=== PATIENT | female | born 1970 | race Caucasian/White ===

== ENCOUNTER → 2016-08-03 | Outpatient (CLI) | payer OTHER ==
[~2016-08-03] MED LIST: ALT25 PO; CEPH500C2 PO; CETI10TA84 PO; DOCU100T7 PO; ERYT2GEL3 TOP; ERYTHROMYCIN 500 MG PO; HYDR-5688 PO; HYDR25SU20 PR; KRV28 PO; NITR1OIN TOP; PROM25TA9 PO
== END | disposition home or self-care (01) ==
LOC: C.PAPS 14:46
PROVIDERS: ATTEND Obstetrics & Gynecology
DX: Z12.4 Encounter for screening for malignant neoplasm of cervix (principal)

== ENCOUNTER → 2016-08-16 | Outpatient (CLI) | payer OTHER | END | disposition home or self-care (01) | LOC: C.PATHSPEC 16:07 | PROVIDERS: ATTEND Obstetrics & Gynecology | DX: N93.8 Other specified abnormal uterine and vaginal bleeding (principal) ==

== ENCOUNTER → 2016-08-16 | Outpatient (CLI) | payer OTHER ==
[2016-08-16 14:44] LABS: BASO % 0.7 %; BASO ABS # 0.04 K/uL (0-0.2); COMPLETE YES; EOS % 2.1 %; HEMATOCRIT 34.6 % (37-47); IG% 0.2 %; LYMPH % 37.8 %; LYMPH ABS # 2.17 K/uL (1.2-3.4); MEAN CELL VOLUME 86.5 fL (80-100); MEAN CORPUSCULAR HEMOGLOBIN 28.3 pg (25-34); MEAN CORPUSCULAR HGB CONC 32.7 g/dl (32-36); MEAN PLATELET VOLUME 9.9 fL (7.4-10.4); MONO % 8.4 %; NEUT % 50.8 %; PLATELET COUNT 447 K/uL (130-400); WHITE BLOOD COUNT 5.74 K/uL (4.8-10.8)
== END | disposition home or self-care (01) ==
LOC: C.LAB1850 13:36
PROVIDERS: ATTEND Internal Medicine
DX: D64.9 Anemia, unspecified (principal); N93.8 Other specified abnormal uterine and vaginal bleeding

== ENCOUNTER → 2016-12-03 | Outpatient (CLI) | payer OTHER ==
[~2016-12-03] MED LIST changes: +FEXO1TAB49 PO; +TAMO20TA9 PO
--- NOTE | 2016-12-06 13:13 | MAMMOGRAPHY REPORT ---
BILATERAL DIGITAL SCREENING MAMMOGRAM TOMOSYNTHESIS WITH CAD: 12/03/2016 CLINICAL HISTORY: Routine screening. Patient has no complaints. TECHNIQUE: Breast tomosynthesis in addition to standard 2D mammography was performed. Current study was also evaluated with a Computer Aided Detection (CAD) system. COMPARISON: Comparison is made to exams dated: 12/01/2015 mammogram, 11/26/2014 mammogram, 10/29/2013 mamm ogram, 10/27/2012 mammogram, 10/22/2011 mammogram, and 10/20/2010 mammogram - [facility] BREAST COMPOSITION: The tissue of both breasts is heterogeneously dense, which may obscure small mas ses. FINDINGS: There is a small cluster of calcifications in the right upper outer quadrant, which is not clearly stable compared to prior exams. Recommend spot magnification views for further evaluation. The remainder of both breasts are stable compared to prior exams, without suspicious masses, calcific ations, or areas of architectural distortion noted. Other scattered benign-appearing calcifications in the right upper outer quadrant do not appear significantly changed. A biopsy marker clip is again noted in the left lateral breast. IMPRESSION: ACR BI-RADS CATEGORY 0: INCOMPLETE EVALUATION: NEED ADDITIONAL IMAGING EVALUATION Right upper outer quadrant calcifications, for which additional imaging evaluation is recommended. T he patient will be called to schedule an appointment. Approximately 10% of breast cancers are not detected with mammography. A negative mammographic report should not delay biopsy if a clinically suggestive mass is present. Jess Gallego M.D. /:12/04/2016 10:10:39 Supervisor Pre Wave: Tammi Moscoso RT(R)(M), [facility] letter sent: Addl Imaging 0 BI-RADS Code: ACR BI-RADS Category 0: Incomplete Evaluation: Need Additional Imaging Evaluation
== END | disposition home or self-care (01) ==
LOC: C.MAMM 07:20
PROVIDERS: ATTEND Obstetrics & Gynecology
DX: Z12.31 Encounter for screening mammogram for malignant neoplasm of breast (principal); R92.1 Mammographic calcification found on diagnostic imaging of breast

== ENCOUNTER → 2016-12-15 | Outpatient (CLI) | payer OTHER ==
[~2016-12-15] MED LIST changes: -FEXO1TAB49 PO; -TAMO20TA9 PO
--- NOTE | 2016-12-15 14:49 | MAMMOGRAPHY REPORT ---
UNILATERAL RIGHT DIGITAL DIAGNOSTIC MAMMOGRAM: 12/15/2016 CLINICAL HISTORY: Callback from screening mammogram for right breast calcifications. TECHNIQUE: Spot magnification right cc and ML views were obtained. COMPARISON: Comparison is made to exams dated: 12/03/2016 mammogram, 12/01/2015 mammogram, 11/26/2014 mamm ogram, 10/29/2013 mammogram, 10/27/2012 mammogram, and 10/22/2011 mammogram - [facility] . BREAST COMPOSITION: The tissue of the right breast is heterogeneously dense, which may obscure small masses. FINDINGS: There is a small 3 mm cluster of slightly coarse, heterogeneous calcifications in the righ t upper outer quadrant posteriorly. Compared to prior exams, the calcifications are slightly increas ed. However, the calcifications appear similar to other scattered calcifications throughout the righ t upper outer quadrant which are stable compared to prior exams; some of the other scattered calcific ations demonstrate layering, suggestive of milk of calcium. The discussion of stereotactic biopsy ve rsus short interval follow-up was had with the patient, and at this time we will proceed to biopsy gi solo the interval increase. IMPRESSION: ACR BI-RADS CATEGORY 4A: LOW SUSPICION FOR MALIGNANCY Interval increase in small cluster of calcifications in the right upper outer quadrant. Although the se may represent fibrocystic changes, recommend stereotactic biopsy for further evaluation. A phone call was made to the physician's office to confirm faxed results were received. The patient has been verbally notified of the results. She tentatively scheduled the biopsy before leaving [facility]. Approximately 10% of breast cancers are not detected with mammography. A negative mammographic report should not delay biopsy if a clinically suggestive mass is present. Jess Gallego M.D. /:12/15/2016 09:10:53 Childcare Worker: Calvin ÁLVAREZ(R)(M), [facility] letter sent: Abnormal 4/5 BI-RADS Code: ACR BI-RADS Category 4A: Low Suspicion For Malignancy
== END | disposition home or self-care (01) ==
LOC: C.MAMM 08:39
PROVIDERS: ATTEND Obstetrics & Gynecology
DX: R92.1 Mammographic calcification found on diagnostic imaging of breast (principal)

== ENCOUNTER → 2016-12-21 | Outpatient (CLI) | payer OTHER ==
[~2016-12-21] MED LIST changes: +FEXO1TAB49 PO; +TAMO20TA9 PO
--- NOTE | 2016-12-21 13:21 | Discharge Instructions ---
Discharge Instructions Procedure Procedure Date: Dec 21, 2016. Reason for visit: Right Calcifications. Discharge Discharge Date: Dec 21, 2016. Discharge Diagnosis: post right breast stereotactic guided biopsy Instructions Activity Recommendations: Additional Limitations (see below) Return to School/Work: no limitations Recommended Home Diet: No Limitations Provider Instructions: ACTIVITY RECOMMENDATIONS: * No lifting, pushing, pulling or exercising the affected side for three days. RETURN TO SCHOOL/WORK: * You may return to work/school after the procedure, but do not perform any strenuous activities for 24 to 48 hours. MEDICATIONS: * Tylenol (two 325 mg) every four to six hours if needed for mild pain (if not allergic to Tylenol). DIET: * Resume previous diet. SPECIAL CARE INSTRUCTIONS: * Keep biopsy site dry for 24 hours. May shower after 24 hours, but do not soak (bathe) incision. * May remove Tegaderm (plastic patch) tomorrow AFTER showering. * Leave the steri-strips on for one week. Allow the steri-strips to fall off by themselves. If not off after one week, you may remove them. You may place a Bandaid crosswise over the strips, if desired. * Apply ice 10 minutes on and 10 minutes off as needed. * Wear a bra at bedtime to sleep more comfortably for 2-3 days. * Your referring physician should have the results after approximately 5 to 7 business days. * Call for unusual bleeding, fever, drainage, etc or if you have any questions call [phone] during normal business hours or after hours call Dr Hernandez, . FOLLOW UP VISIT: Follow-up with Referring Physician as scheduled. Allergies Coded Allergies: SHELLFISH (Verified Allergy, Severe, swelling and hives, 06/14/13) Hydromorphone (Verified Allergy, Intermediate, ITCHING, 06/14/13) Tetracycline (Verified Adverse Reaction, Intermediate, N/V, 06/14/13) Uncoded Allergies: BEE STINGS (Allergy, Intermediate, ANAPHYLAXIS, 04/14/13) Jessy Chinchilla Recommendations: Call your doctor if: * Temperature above 101 degrees * Pain not relieved by pain medicine ordered * There is increased drainage or redness from any incision * You have any unanswered questions or concerns. Your Doctors Instructions noted above were prepared by provider Sharri Hernandez. Patient Signature Section: Patient Instructions Signature Page Gena Mahoneyntz Patient (or Guardian) Signature/Date: I have read and understand the instructions given to me by my caregivers. Caregiver/RN/Doctor Signature/Date: The above-named patient and/or guardian has received patient instructions on this date. + Original Patient Signature Page (only) stays with chart. Please make copy for patient.
--- NOTE | 2016-12-21 15:37 | MAMMOGRAPHY REPORT ---
THIS REPORT HAS BEEN AMENDED. STEREOTACTIC GUIDED BIOPSY RIGHT BREAST: 12/21/2016 CLINICAL HISTORY: Indeterminate 3 mm cluster of microcalcifications in the upper outer quadrant of th e right breast. Patient presents for stereotactic biopsy. COMPARISON: Comparison is made to exams dated: 12/15/2016 mammogram, 12/03/2016 mammogram, 12/01/2015 cain mogram, 11/26/2014 mammogram, 10/29/2013 mammogram, and 10/27/2012 mammogram - [facility] . PATIENT CONSENT: After explaining the risks, benefits and alternatives of the procedure to the patien t, informed consent was obtained both verbally and in writing. Specific risks include: Bleeding, inf ection, puncture of adjacent structure, pain, nontarget biopsy, sampling error, metal allergy and med ication reaction. PROCEDURE DESCRIPTION: A time-out was performed and the right breast was confirmed as the site of bio psy. The patient was placed prone on the stereotactic biopsy table and the breast was placed in later almedial compression. A petroleum production engineer image was obtained that demonstrated the clustered microcalcifications in question. They are amenable to sterotactic biopsy. Then +15 and -15 stereo pair images were ob tained. The calcifications were targeted utilizing the coordinates obtained by the computer. The ski n was prepped with Betadine. 1% Lidocaine with and without epinipherine was administered as local ane sthesia. A small skin incision was made. Through the incision, the needle was inserted to the depth determined by the computer. 5 samples were obtained using a Spike[employer] 9-gauge vacuum-assisted biops y device. The specimen radiograph demonstrated several hostess party sales representative microcalcifications, therefore, a metallic marker was placed at the biopsy site. There was no immediate complication. Hemostasis was achieved after several minutes of manual compression. The samples were sent to pathology in two lon ropriately labeled containers, "with calcifications" and "without calcifications". All of the samples were obtained from the same single biopsy site. Postprocedure CC and ML views of the right breast were obtained. There is a new dumbbell shaped met allic biopsy marker and no significant hematoma in the upper outer middle to posterior right breast, at the site of the biopsy clustered microcalcifications. IMPRESSION: STEREOTACTIC GUIDED BIOPSY Status post stereotactic guided biopsy of a small 3 mm cluster of microcalcifications in the upper ou ter quadrant of the right breast, the biopsy marker placed at the site. The patient will receive notification of the biopsy results from her referring physician. Sharri Hernandez M.D. ay/:12/21/2016 13:48:57 Drug Safety Coordinator: Minerva Tavarez, [facility] AMENDMENT: 12/29/2016 Sharri Hernandez M.D. Pathology results from the stereotactic guided biopsy of a small clustered microcalcifications in the upper outer quadrant of the right breast yielded ductal carcinoma in situ, cribriform and solid with , no necrosis, nuclear grade 2 of 3. No invasive carcinoma seen. The pathology results are concorda nt with the imaging appearance. Although other punctate diffuse microcalcifications in both breasts appears stable compared to more remote mammograms suggesting benign fibrocystic changes, and the poss ibility of noncalcified DCIS, consider bilateral breast MRI, prior to definitive treatment.
--- NOTE | 2016-12-21 15:39 | MAMMOGRAPHY REPORT ---
UNILATERAL RIGHT DIGITAL DIAGNOSTIC MAMMOGRAM: 12/21/2016 CLINICAL HISTORY: Status post stereotactic guided biopsy of clustered microcalcifications in the righ t upper outer quadrant. Please refer to the report from right breast stereotactic guided biopsy performed at the same time fo r full detail. IMPRESSION: POST PROCEDURE IMAGING FOR MARKER PLACEMENT Please refer to the report from right breast stereotactic guided biopsy performed at the same time fo r full detail. Approximately 10% of breast cancers are not detected with mammography. A negative mammographic report should not delay biopsy if a clinically suggestive mass is present. Sharri Hernandez M.D. ay/:12/21/2016 13:50:25 Coiler Operator: Minerva Tavarez, [facility] BI-RADS Code: Post Procedure Imaging For Marker Placement
== END | disposition home or self-care (01) ==
LOC: C.MAMM 12:35
PROVIDERS: ATTEND Obstetrics & Gynecology
DX: R92.1 Mammographic calcification found on diagnostic imaging of breast (principal); D05.11 Intraductal carcinoma in situ of right breast

== ENCOUNTER 2017-01-12 07:56 | Observation (INO) | payer OTHER ==
[2017-01-05 07:59] VITALS: BMI 24.0
--- NOTE | 2017-01-05 08:42 | PAT Medication Instructions ---
Service Date Jan 05, 2017. Current Home Medication List Cetirizine (Zyrtec), 10 MG PO QAM PRN for SKIN IRRITATION Docusate Sodium (Stool Softener), 200 MG PO DAILY PRN for Constipation Erythromycin (Acne Aid) (Erythromycin), 1 APPLN TOP PRN PRN for ACNE Ramipril (Altace), 5 MG PO QAM [Erythromycin 500MG], 1 TABLET PO DAILY PRN for ACNE Medication Instructions For Your Scheduled Surgery - Hold the following medications 24 hours prior to surgery: Erythromycin (Acne Aid) (Erythromycin), 1 APPLN TOP PRN PRN for ACNE - Hold the following medications the morning of surgery: Ramipril (Altace), 5 MG PO QAM Docusate Sodium (Stool Softener), 200 MG PO DAILY PRN for Constipation Cetirizine (Zyrtec), 10 MG PO QAM PRN for SKIN IRRITATION [Erythromycin 500MG], 1 TABLET PO DAILY PRN for ACNE If you have any questions please call us at [phone] or [phone] or [phone]
[2017-01-05 09:54] LABS: BASO % 0.6 %; BASO ABS # 0.03 K/uL (0-0.2); COMPLETE YES; EOS % 2.1 %; HEMATOCRIT 33.8 % (37-47); LYMPH % 34.9 %; LYMPH ABS # 1.66 K/uL (1.2-3.4); MEAN CELL VOLUME 90.6 fL (80-100); MEAN CORPUSCULAR HEMOGLOBIN 28.4 pg (25-34); MEAN CORPUSCULAR HGB CONC 31.4 g/dl (32-36); MEAN PLATELET VOLUME 9.9 fL (7.4-10.4); MONO % 8.2 %; NEUT % 54.2 %; PLATELET COUNT 399 K/uL (130-400); RED BLOOD COUNT 3.73 M/uL (4.2-5.4); WHITE BLOOD COUNT 4.76 K/uL (4.8-10.8)
[2017-01-05 11:06] LABS: BUN/CREATININE RATIO 18.7 (10-20); CREATININE 0.75 mg/dl (0.60-1.20); POTASSIUM 4.3 mmol/L (3.5-5.1)
[2017-01-12] VITALS (8 sets, daily range): BP systolic 109–132; BP diastolic 67–80; PULSE 59–87; TEMP 36.5–37; O2SAT 97–100; Ht 172.7 cm; Wt 73.2 kg
[~2017-01-12] VITALS: Ht 172.7 cm; Wt 73.2 kg
[~2017-01-12 07:56] MED LIST changes: +CEFAZOLIN 2000 MG/60 ML D5W IV SCH; -CEPH500C2 PO; -FEXO1TAB49 PO; -HYDR-5688 PO; -HYDR25SU20 PR; -KRV28 PO; -NITR1OIN TOP; -PROM25TA9 PO; -TAMO20TA9 PO
--- NOTE | 2017-01-12 09:05 | History & Physical Bridge Note ---
H&P Re-Evaluation Bridge Note: I have examined the patient, reviewed the History & Physical and in the interval since the performance of the History & Physical I have noted the following changes of clinical significance: No changes noted
--- NOTE | 2017-01-12 10:16 | DIAGNOSTIC IMAGING REPORT ---
LYMPHOSCINTIGRAPHY CLINICAL HISTORY: Right-sided breast cancer. PROCEDURE: Using standard sterile technique, 5 intradermal injections totaling 0.52 mCi of Lymphoseek was placed in the right breast. The patient tolerated the procedure well. There were no immediate complications. The patient was subsequently transported to the surgical suite. No imaging was obtained at the referring physician's request. IMPRESSION: Injection of 0.52 mCi of Lymphoseek in the right breast. Electronically signed by: Edy Diaz M.D. 01/12/2017 10:15 AM Dictated Date/Time: 01/12/2017 10:11 AM
[2017-01-12] MEDS ORDERED: FENTANYL CITRATE INJ 50 MCG/1 ML 2 ML VIAL ONE ×3 (10:19→12:59)
[2017-01-12] MEDS ORDERED: MIDAZOLAM HCL 1 MG/ML 2ML VIAL ONE (10:19)
[2017-01-12] MEDS ORDERED: HYDR-5688 PO (11:09)
--- NOTE | 2017-01-12 11:14 | Discharge Instructions ---
Discharge Instructions Date of Service Jan 12, 2017. Admission Reason for Admission: Rt Dcis W/Lympho/Hosp Loc Discharge Discharge Diagnosis / Problem: DCIS Rt breast Discharge Goals Goal(s): Decrease discomfort, Improve function, Improve disease control Activity Recommendations Activity Limitations: as noted below Lifting Limitations: no more than 10 pounds Exercise/Sports Limitations: until after follow-up appointment May Resume Sexual Activity: when tolerated Shower/Bathe: keep incision dry (may shower over incision 01/14) Driving or Machine Use: resume 3 days after discharge SPECIAL CARE INSTRUCTIONS: * Cover incisions and change daily for comfort/drainage. * Leave steri strips in place * May use ibuprofen for pain as tolerated. * be sure to drink liquids and avoid food if nauseated * Expect some swelling and bruising. Call your doctor if: * Temperature above 101 degrees * Pain not relieved by pain medicine ordered * There is increased drainage or redness from any incision * You have any unanswered questions or concerns [phone]. FOLLOW UP VISIT: If not already scheduled, please call the office for a follow-up visit. for next week- some suture removal OFFICE PHONE NUMBER: Dr. Andrade Office . Current Hospital Diet Patient's current hospital diet: Discharge Diet Recommended Diet: Regular Diet Pending Studies Studies pending at discharge: no Medical Emergencies . Who to Call and When: Medical Emergencies: If at any time you feel your situation is an emergency, please call 911 immediately. . Non-Emergent Contact Non-Emergency issues call your: Primary Care Provider, Surgeon . "Provider Documentation" section prepared by Ashok Andrade. . VTE Core Measure Inpt VTE Proph given/why not?: SCD's
[2017-01-12] MEDS ORDERED: BUPIVACAINE 0.5 % 5 MG/1 ML MPF 30ML VIAL ONE (11:18)
[2017-01-12] MEDS ORDERED: METHYLENE BLUE 0.5% 10 ML VIAL ONE (11:18)
[2017-01-12] MEDS ORDERED: PROPOFOL IV EMULSION 10 MG/ML 20 ML VIAL IV ONE (11:50)
[2017-01-12] MEDS ORDERED: LIDOCAINE HCL 2% 2 ML VIAL (20MG/ML) ONE (11:50)
[2017-01-12] MEDS ORDERED: DEXAMETHASONE SOD INJ 4 MG/ML VIAL ONE (11:50)
[2017-01-12] MEDS ORDERED: EpHEDrine SULFATE INJ 50 MG/ML AMP ONE (11:50)
[2017-01-12] MEDS ORDERED: ONDANSETRON INJ 2 MG/ML 2 ML VIAL ONE (11:50)
[2017-01-12] MEDS ORDERED: ONDANSETRON INJ 2 MG/ML 2 ML VIAL IV PRN ×2 (12:00→12:45)
[2017-01-12] MEDS ORDERED: PROMETHAZINE HCL INJ 6.25 MG in SODIUM CHLORIDE 0.9% 50ML 50 ML IV PRN (12:00)
[2017-01-12] MEDS ORDERED: ATROPINE SULFATE 0.1 MG/ML 5ML SYR IV PRN (12:00)
[2017-01-12] MEDS ORDERED: FENTANYL CITRATE INJ 50 MCG/1 ML 2 ML VIAL IV PRN (12:00)
[2017-01-12] MEDS ORDERED: KETOROLAC TROMETHAMINE 30 MG/ML VIAL IV. PRN (12:00)
[2017-01-12] MEDS ORDERED: PROMETHAZINE HCL INJ 25 MG in SODIUM CHLORIDE 0.9% 50ML 50 ML IV PRN (12:45)
[2017-01-12] MEDS ORDERED: IBUPROFEN 600 MG TAB PO PRN (12:45)
[2017-01-12] MEDS ORDERED: MoRPHine SULFATE 2 MG/ML CARP IV PRN (12:45)
[2017-01-12] MEDS ORDERED: MoRPHine SULFATE 4 MG/ML 1 ML CARP\\VIAL IV PRN (12:45)
[2017-01-12] MEDS ORDERED: HYDROCODONE/ACETAMOPHEN 5/325MG TAB PO PRN (12:45)
--- NOTE | 2017-01-12 12:53 | [facility] Operative Report ---
Operative Report Operative Date Jan 12, 2017. Pre-Operative Diagnosis DCIS Rt breast Post-Operative Diagnosis same Procedure(s) Performed needle loc Rt partial mastectomy with sentinel lymph node bx Surgeon Raymond Curriculum Development Manager Surgeon(s) Florecita Summers Estimated Blood Loss 20cc Findings 1 SLN and clip in Rt breast tissue Specimens LN, breast tissue Anesthesia gen Complication(s) None Disposition Recovery Room / PACU Description of Procedure Patient was brought in the operating room placed napping table in supine position and her right arm was extended onto an arm board. She had needle placed in the lateral right breast at the breast pear[place]. Her right breast and axilla were prepped and draped in the usual fashion. Using the neoprobe I was able to localize a right axillary lymph node after appropriate incision in the right axilla. This lymph node was sent for frozen section and found to be negative. During the frozen section incision was made around the needle in the right breast. Section was carried medially around the needle sizing the tissue. Tissue was marked with the needle lateral long silk suture medial and short silk suture superior. This tissue was placed into the Faxitron the image sent to the breast center. Calcifications were within the specimen. The clip was anterior to the needle and I did take additional anterior medial and deep tissue with a silk suture lateral and the more dense tissue medial. The new margin was marked with methylene blue. Deep tissue in both wounds were reapproximated using 20 plain catgut suture. The skin in the axilla closed using 4-0 Prolene suture. The breast skin closed using subcuticular 5-0 Monocryl with Steri-Strips. Dressings applied and patient transferred to recovery room in stable condition. I attest to the content of the Intraoperative Record and any orders documented therein. Any exceptions are noted below.
[2017-01-12] MEDS ORDERED: KETOROLAC TROMETHAMINE 30 MG/ML VIAL ONE (12:59)
[2017-01-12] MEDS ORDERED: IV FLUIDS COMPLETED PRN (13:45)
--- NOTE | 2017-01-12 13:51 | MAMMOGRAPHY REPORT ---
NEEDLE LOCALIZATION RIGHT BREAST: 01/12/2017 CLINICAL HISTORY: 46-year-old woman with recent biopsy-proven right breast DCIS. She presents for pr eoperative localization prior to lumpectomy. COMPARISON: Comparison is made to exams dated: 12/21/2016 mammogram, 12/21/2016 stereotactic biopsy, mammogram, 12/01/2015 mammogram, 11/26/2014 mammogram, and 10/29/2013 mammogram - [facility]. PATIENT CONSENT: The risks of the procedure were explained to the patient and informed consent was ob tained. PROCEDURE DESCRIPTION: Postprocedure mammograms obtained after the stereotactic guided biopsy on 11/26 were reviewed. The dumbbell shaped metallic biopsy marker in the upper outer middle one third of the breast is the intended target for preoperative localization. A time out was performed and th e right breast was agreed as the site for localization. With the patient in the seated position, the right breast was placed in lateralmedial compression. After cleansing the skin with an alcohol swab, 1% buffered lidocaine was administered subcutaneously and intraparenchymally as local anesthesia. A 5cm Santillan II needle and wire combination was insert ed into the breast. Optimal positioning was confirmed and both the needle and wire were locked in evonne ce. Procedure including approach and needle length were discussed with the operating surgeon prior t o surgery. The patient tolerated the procedure well and there was no immediate complication. She wa s sent to the hospital operating room in satisfactory condition. A surgical specimen radiograph was obtained. The specimen contains the dumbbell-shaped metallic biop sy marker and the localizing needle and wire, compatible with successful preoperative localization an d surgical excision. The biopsy marker clip is located at C6 based on the alphanumeric grid. IMPRESSION: NEEDLE LOCALIZATION Status post successful preoperative needle and wire localization for biopsy proven DCIS in the right upper outer quadrant. The imaged specimens includes the intended abnormality. The patient will receive notification of the results from her referring physician. Sharri Hernandez M.D. ay/:01/12/2017 12:59:21 Rn Maternal Child: Marjan WHALEY)(Jeffry), [facility]
--- NOTE | 2017-01-12 14:33 | Anesthesiology Progress Note ---
Anesthesia Post Op Note Date & Time Jan 12, 2017 at 14:33 Vital Signs Pain Intensity: 0.0 Vital Signs Past 12 Hours Date Time Temp Pulse Resp B/P (MAP) Pulse Ox O2 Delivery O2 Flow Rate FiO2 01/12/17 14:20 99 Nasal Cannula 2.0 01/12/17 14:10 36.9 81 18 132/76 (94) 99 2.0 01/12/17 13:45 85 16 120/72 99 Nasal Cannula 2 01/12/17 13:35 36.9 85 16 120/82 99 Nasal Cannula 2 01/12/17 13:25 85 16 124/83 99 Nasal Cannula 2 01/12/17 13:15 85 16 122/81 100 Mask 5 01/12/17 13:05 84 12 134/90 100 Mask 8 01/12/17 12:55 90 17 135/80 100 Mask 10 01/12/17 12:46 36.5 96 16 131/81 100 Mask 10 01/12/17 08:45 37 59 18 130/67 (88) 100 Room Air Notes Mental Status: alert / awake / arousable, participated in evaluation Pt Amnestic to Procedure: Yes Nausea / Vomiting: adequately controlled Pain: adequately controlled Airway Patency, RR, SpO2: stable & adequate BP & HR: stable & adequate Hydration State: stable & adequate Anesthetic Complications: no major complications apparent
[2017-01-12] MEDS ORDERED: LACTATED RINGER'S 1000ML 1,000 ML IV SCH (15:00)
[2017-01-12] MEDS ORDERED: CEPH500C2 PO (16:23)
--- NOTE | 2017-01-12 16:28 | Discharge Summary ---
Discharge Summary Date of Service Jan 12, 2017. Discharge Summary Admission Date: Jan 12, 2017 at 12:47 Primary Diagnosis: DCIS Rt breast Procedures: Rt partial mastectomy with sentinel lymph node bx Discharge Instructions Last Recorded Wt (Kilograms): 73.200 Allergies: Coded Allergies: Shellfish (Verified Allergy, Severe, swelling and hives, 01/12/17) BEE STING (Unverified Allergy, Intermediate, ANAPHYLAXIS, 01/12/17) Hydromorphone (Verified Allergy, Intermediate, ITCHING, "GROGGINESS", 01/12) Tetracycline (Verified Adverse Reaction, Intermediate, N/V, 01/12/17) Special Care: Call your doctor if: * Temperature above 101 degrees * Pain not relieved by pain medicine ordered * There is increased drainage or redness from any incision * You have any unanswered questions or concerns. Avoid all tobacco products. If you need help to stop smoking, call [employer] FREE QUITLINE at . This is a free call. Admission Information Admission HPI: h/o of prior core bx showing DCIS Rt breast for definitive surgery Hospital Course Patient was brought in the hospital on 01/12/2017. She was taken the operating room placed in the operative table in supine position. She had had a needle placed in the right breast the breast center and had also undergone injection in radiology for sentinel lymph node biopsy. Her right chest and axilla were prepped and draped in usual fashion. Incision was made in the right axilla using half percent plain Marcaine to anesthetize skin and subcutaneous tissue. Dissection was carried down identifying the sentinel lymph node which was sent for frozen section. The lymph node was negative on frozen section. During the frozen section lumpectomy was performed by making incision around the needle in the lateral right breast. Dissection was carried down in the tissue around the needle excised. See remainder of operative report for details. Patient did tolerate procedure very well subsequently transferred to the recovery room and then the regular nursing floor. She did have some nausea and small episode of emesis during the evening. It has improved and she is tolerating liquids. I do feel she is stable for discharge home be followed in the surgical clinic next week. We'll give her a prescription for Phenergan. Total time spent on discharge = This includes examination of the patient, discharge planning, medication reconciliation, and communication with other providers.
[2017-01-12] MEDS: CEFAZOLIN IV 1,000 MG in DEXTROSE 5% 50ML 50 ML IV SCH ×2 (18:35→23:29)
[2017-01-12] MEDS: HYDROCODONE/ACETAMOPHEN 5/325MG TAB PO PRN ×2 (18:38→23:15)
[2017-01-13 03:45] VITALS: BP 94/58; PULSE 63; TEMP 36.8; O2SAT 97
[2017-01-13] MEDS: CEFAZOLIN IV 1,000 MG in DEXTROSE 5% 50ML 50 ML IV SCH (05:32)
[2017-01-13] MEDS ORDERED: PROM25TA9 PO (05:57)
[2017-01-13] MEDS: HYDROCODONE/ACETAMOPHEN 5/325MG TAB PO PRN (06:24)
[2017-01-13 07:16] VITALS: BP 94/58; PULSE 63; TEMP 36.8; O2SAT 97
[2017-01-13 07:26] VITALS: BP 108/66; PULSE 61; TEMP 36.8; O2SAT 99
--- NOTE | 2017-01-13 07:55 | Anesthesiology Progress Note ---
Anesthesia Post Op Note Date & Time Jan 13, 2017 at 07:54 Vital Signs Pain Intensity: 3.0 Vital Signs Past 12 Hours Date Time Temp Pulse Resp B/P (MAP) Pulse Ox O2 Delivery O2 Flow Rate FiO2 01/13/17 07:26 36.8 61 16 108/66 (80) 99 Room Air 01/13/17 07:16 36.8 63 16 97 Room Air 01/13/17 03:45 36.8 63 16 94/58 (70) 97 Room Air 01/12/17 23:35 36.7 71 16 120/78 (92) 99 Room Air 01/12/17 23:23 Room Air Notes Mental Status: alert / awake / arousable, participated in evaluation Anesthetic Complications: no major complications apparent
[2017-01-13] MEDS ORDERED: ENALAPRIL MALEATE 10 MG TAB PO SCH (09:00)
== END 2017-01-13 09:30 | disposition home or self-care (01) ==
LOC: C.ACU 07:56 → C.MSN 12:47 → ENRESERV 13:03
PROVIDERS: ADMIT Surgery; ATTEND Surgery
DX: D05.11 Intraductal carcinoma in situ of right breast (principal); N60.11 Diffuse cystic mastopathy of right breast; E78.5 Hyperlipidemia, unspecified; I10 Essential (primary) hypertension

== ENCOUNTER → 2017-04-18 | Outpatient (CLI) | payer OTHER ==
[~2017-04-18] MED LIST changes: -CEFAZOLIN 2000 MG/60 ML D5W IV SCH; -DOCU100T7 PO; -ERYTHROMYCIN 500 MG PO; +FEXO1TAB49 PO; +TAMO20TA9 PO
[2017-04-18 09:41] LABS: BASO % 0.9 %; BASO ABS # 0.05 K/uL (0-0.2); COMPLETE YES; EOS % 3.5 %; IG% 0.4 %; LYMPH % 33.9 %; LYMPH ABS # 1.85 K/uL (1.2-3.4); MEAN CELL VOLUME 88.9 fL (80-100); MEAN CORPUSCULAR HEMOGLOBIN 28.6 pg (25-34); MEAN CORPUSCULAR HGB CONC 32.2 g/dl (32-36); MONO % 9.5 %; NEUT % 51.8 %; PLATELET COUNT 362 K/uL (130-400); RED BLOOD COUNT 4.61 M/uL (4.2-5.4); WHITE BLOOD COUNT 5.45 K/uL (4.8-10.8)
== END | disposition home or self-care (01) ==
LOC: C.LAB1850 08:20
PROVIDERS: ATTEND Dermatology
DX: L50.9 Urticaria, unspecified (principal)

== ENCOUNTER → 2017-04-19 | Outpatient (CLI) | payer OTHER ==
[2017-04-19 15:24] VITALS: BP 133/84; PULSE 72; TEMP 37; O2SAT 100
--- NOTE | 2017-04-19 16:04 | Radiation Oncology Follow-Up ---
Radiation Oncology Follow-Up Date of Visit Apr 19, 2017. Reason For Visit One-month follow-up in cancer survivorship care plan Radiation Completion Date 03/17/17 Diagnosis (1) Ductal carcinoma in situ (DCIS) of breast Status: Resolved Onset Date: 12/21/2016 Stage: 0 Permanent Comment: Abnormal right breast mammogram Status post ultrasound-guided core needle biopsy 12/21/2016 Ductal carcinoma in situ Estrogen receptor positive and progesterone receptor negative Status post needle localization lumpectomy and sentinel lymph node biopsy 2016 Stage pTis [id number] Status post completion of radiation therapy 03/17/2017. She received 5130 cGy utilizing hypo-fractionation. Last Edited By: Mikala Brooks on Mar 25, 2017 11:06 History of Present Illness Ms. Morris presented with an abnormal mammogram on 12/03/2016 which revealed a small cluster of calcifications in the right upper outer quadrant of the breast. She was brought back on 12/15/2016 for a unilateral right diagnostic mammogram which confirmed a small cluster of calcifications in the right breast in the upper outer quadrant. She then underwent a stereotactic core biopsy of 2 regions (one with calcifications and one without calcifications) of the right breast lesion on 12/21/2016 which confirmed ductal carcinoma in situ with comedonecrosis that his nuclear grade 2/3 and measured up to 0.3 cm in greatest dimension; the biopsy sample without calcifications also confirmed ductal carcinoma in situ that was nuclear grade 2/3 that measured up to 4 mm in the greatest dimension and was estrogen receptor positive and progesterone receptor negative. The patient saw Dr. Ashok Andrade in consultation in discuss treatment options including mastectomy and breast conserving surgery. The patient elected for a right breast lumpectomy and sentinel lymph node biopsy on 01/12/2017 underneath the supervision of Dr. Ashok Andrade. Pathology revealed ductal carcinoma in situ that was grade 3 with no evidence of necrosis and measures 0.4 cm in the greatest dimension. The margins were negative and the closest margin was 1 mm. The sentinel lymph node revealed no evidence of metastatic carcinoma. The patient was seen by Michele Rios from medical oncology who recommended anti- hormonal therapy utilizing tamoxifen. We are now seeing the patient in consultation discuss the role of adjuvant radiation therapy. She underwent a CT simulation and was found to be a candidate for hypo- fractionation. Her treatment was completed on 03/17/2017. She received 5130 cGy. Interim History She has been doing well over the past month in regards to skin irritation. This resolved without difficulty. She denies any discomfort of the breast. She 's noted no masses no change of the axilla. She was started on tamoxifen. With the medication she has noted some dermatologic issues. She did see the lace machine operator. She describes dermatographia. She has been on Zyrtec and this was just changed to Jeanna today. She does have hot flashes which are noted at bedtime. These are less of an issue throughout the day. 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 Allergies Coded Allergies: Shellfish (Verified Allergy, Severe, swelling and hives, 01/12/17) BEE STING (Unverified Allergy, Intermediate, ANAPHYLAXIS, 01/12/17) Hydromorphone (Verified Allergy, Intermediate, ITCHING, "GROGGINESS", 01/12) Tetracycline (Verified Adverse Reaction, Intermediate, N/V, 01/12/17) Home Medications Scheduled Cetirizine (Zyrtec), 10 MG PO DAILY Fexofenadine Hcl (Jeanna Allergy), 1 TAB PO DAILY Ramipril (Altace), 5 MG PO QAM Tamoxifen (Nolvadex), 20 MG PO DAILY Scheduled PRN Erythromycin (Acne Aid) (Erythromycin), 1 APPLN TOP PRN PRN for ACNE Review of Systems Oral: Symptoms: No Problems Respiratory: Symptoms: WNL Urinary: Symptoms: WNL Skin: Symptoms: Mod-Brisk Erythema Breast: Right Upper Arm Measurement: 27.5 Right Mid Arm Measurement: 23.0 Right Wrist Measurement: 16.5 Left Upper Arm Measurement: 27.5 Left Mid Arm Measurement: 24.0 Left Wrist Measurement: 16.5 Arm Dominence: Left Additional Notes: She completed a distress management report and answered "no" to all questions. Physical Exam Vital Signs Date Time Temp Pulse Resp B/P (MAP) Pulse Ox O2 Delivery O2 Flow Rate FiO2 04/19/17 15:24 37.0 72 18 133/84 100 Pain: Pain Onset: after surgery Pain Duration: since surgery01/12 Side: Right Patient Pain Scale: 0 - 10 Initial Pain Intensity: 2.0 Pain Description: Aching Additional Comments: deep inner aching pain when lifts arm above shoulder, carrying purse, General Appearance: no apparent distress Eyes: normal inspection, EOMI ENT: normal ENT inspection, hearing grossly normal Neck: no adenopathy, thyroid normal Respiratory/Chest: lungs clear, no respiratory distress, no accessory muscle use Breast: There are well-healed incisions of the right breast. Mild asymmetry. She has small pustule on the skin at the edge of the areola. There are no masses or tenderness and no axillary adenopathy. Minimal hyperpigmentation. There is no breast edema. Using the [place]win score cosmesis she has a good outcome. The left breast showed no masses or tenderness no axillary adenopathy. Cardiovascular: regular rate, rhythm, no gallop, no murmur Extremities: no pedal edema Neurologic/Psychiatric: no motor/sensory deficits, alert, normal mood/affect Skin: warm/dry Laboratory Studies Test 01/25/17 13:53 04/18/17 08:28 White Blood Count 6.13 K/uL (4.8-10.8) 5.45 K/uL (4.8-10.8) Red Blood Count 3.92 M/uL (4.2-5.4) 4.61 M/uL (4.2-5.4) Hemoglobin 11.2 g/dL (12.0-16.0) 13.2 g/dL (12.0-16.0) Hematocrit 35.1 % (37-47) 41.0 % (37-47) Mean Corpuscular Volume 89.5 fL (80-100) 88.9 fL (80-100) Mean Corpuscular Hemoglobin 28.6 pg (25-34) 28.6 pg (25-34) Mean Corpuscular Hemoglobin Concent 31.9 g/dl (32-36) 32.2 g/dl (32-36) Platelet Count 497 K/uL (130-400) 362 K/uL (130-400) Mean Platelet Volume 9.9 fL (7.4-10.4) 11.0 fL (7.4-10.4) Neutrophils (%) (Auto) 42.7 % 51.8 % Lymphocytes (%) (Auto) 41.6 % 33.9 % Monocytes (%) (Auto) 7.7 % 9.5 % Eosinophils (%) (Auto) 6.2 % 3.5 % Basophils (%) (Auto) 1.6 % 0.9 % Neutrophils # (Auto) 2.62 K/uL (1.4-6.5) 2.82 K/uL (1.4-6.5) Lymphocytes # (Auto) 2.55 K/uL (1.2-3.4) 1.85 K/uL (1.2-3.4) Monocytes # (Auto) 0.47 K/uL (0.11-0.59) 0.52 K/uL (0.11-0.59) Eosinophils # (Auto) 0.38 K/uL (0-0.5) 0.19 K/uL (0-0.5) Basophils # (Auto) 0.10 K/uL (0-0.2) 0.05 K/uL (0-0.2) RDW Standard Deviation 46.1 fL (36.4-46.3) 47.6 fL (36.4-46.3) RDW Coefficient of Variation 14.0 % (11.5-14.5) 14.5 % (11.5-14.5) Immature Granulocyte % (Auto) 0.2 % 0.4 % Immature Granulocyte # (Auto) 0.01 K/uL (0.00-0.02) 0.02 K/uL (0.00-0.02) Absolute Reticulocyte Count 0.05 10^6/uL (0.02-0.10) Percent Reticulocyte Count 1.2 % (0.5-2.0) Iron Level 68 mcg/dl (35-150) Total Iron Binding Capacity 489 mcg/dl (250-450) Ferritin 13.2 ng/ml (8.0-388.0) Qeiyl-8-Wehpsskoc 0.3 G/DL (0.2-0.3) Nxion-0-Taebwbwie 0.7 G/DL (0.5-0.9) Wnhz-4-Fuppgici 0.6 G/DL (0.4-0.6) Yysj-1-Lchliaif 0.3 G/DL (0.2-0.5) Gamma Globulins 0.9 G/DL (0.8-1.7) Prot Electrophor Monoclonal Peak 3 G/DL (NOT DETECTED) Serum Monoclonal Protein G/DL (NOT DETECTED) Serum Monoclonal Protein (2) G/DL (NOT DETECTED) Protein Electrophoresis Interpret SEE NOTE Vitamin B12 Level 339 pg/mL (211-911) Folate 9.60 ng/mL (>5.38) Serum Immunofixation SEE NOTE Total Protein (SHAW) 7.0 G/DL (6.2-8.3) Albumin (SHAW) 4.1 G/DL (3.8-4.8) Erythrocyte Sedimentation Rate 4 mm/hr (0-21) Assessment & Plan Plan: I recommended warm compresses to the small pustule on the right breast. Mammography was scheduled for the right breast in 2 months and bilateral mammography in 8 months. These will be digital diagnostic mammograms. The screening mammogram and she had scheduled for one year will be canceled. Today we completed a cancer survivorship care plan. A copy of the document was given to the patient. She was given a survivorship booklet. She was seen and examined by Dr. Ortiz. She'll contact the lace machine operator if the Jeanna is not helping with her dermatographia. We discussed vitamin E for hot flashes. We asked her to return to our office in 6 months. She may call if she has any questions or concerns in the interim. Assessment & Plan (Attending) ADDENDUM: I agree with note created by Mikala Brooks PA-C. I reviewed the patient's chart and information with her. I have examined and evaluated the patient. I reviewed relevant clinical information and answered the patient's and /or family's questions. AUTOMOBILE GLASS TECHNICIAN Total Time In Follow-Up I spent 20 minutes speaking to the patient and performing examination. I spent 20 minutes reviewing information, preparing the survivorship document, and completing this note. Total Time (Attending) In Follow-Up I spent 15 minutes examining and counseling the patient. AUTOMOBILE GLASS TECHNICIAN Copy To Isrrael Sanders M.D.; Ashok Andrade M.D.; Michele Rios D.O. Problem Qualifiers (1) Ductal carcinoma in situ (DCIS) of breast: Laterality: right Qualified Codes: D05.11 - Intraductal carcinoma in situ of right breast
== END ==
LOC: C.ONC 15:15
PROVIDERS: ATTEND Radiology Radiation Oncology
DX: Z08 Encounter for follow-up examination after completed treatment for malignant neoplasm (principal); Z92.3 Personal history of irradiation; Z85.3 Personal history of malignant neoplasm of breast

== ENCOUNTER → 2017-06-21 | Outpatient (CLI) | payer OTHER ==
--- NOTE | 2017-06-21 15:30 | MAMMOGRAPHY REPORT ---
UNILATERAL RIGHT DIGITAL DIAGNOSTIC MAMMOGRAM TOMOSYNTHESIS WITH CAD: 06/21/2017 CLINICAL HISTORY: 47-year-old woman with a personal history of right breast DCIS status post lumpecto my performed in December 2016, and radiation therapy. She presents for first follow-up in the right [facility] after treatment. TECHNIQUE: Right breast tomosynthesis in addition to standard 2D mammography was performed. Spot mag nification right CC and ML views were also obtained. Current study was also evaluated with a Compute r Aided Detection (CAD) system. COMPARISON: Comparison is made to exams dated: 01/12/2017 localization, 01/12/2017 specimen, 12/21/2016 mammogram, 12/21/2016 stereotactic biopsy, 12/15/2016 mammogram, and 12/03/2016 mammogram - [facility]. BREAST COMPOSITION: The tissue of the right breast is heterogeneously dense, which may obscure small masses. FINDINGS: There is mild diffuse skin thickening and trabecular edema of the right breast. Expected a rchitectural distortion and 2 surgical clips in the upper outer middle one third of the breast, at th e site of prior lumpectomy. There are numerous round lucent areas at the surgical site, most compati ble with fat necrosis. There are punctate and amorphous microcalcifications in the upper outer middl e and anterior one third of the right breast, anterior to the surgical site, which have been stable o n prior mammograms dating back to at least 2008 and most likely represent benign calcifications from fibrocystic change. No suspicious mass, architectural distortion or cluster of microcalcifications i s seen. IMPRESSION: ACR-BI-RADS CATEGORY 3: PROBABLY BENIGN Expected post treatment changes in the right breast, without definite mammographic evidence of malign jose alberto. A six-month close follow-up right diagnostic tomosynthesis mammogram including spot magnificat ion views is recommended to ensure longer stability after treatment. Annual left mammography will al so be due at that time. These results and recommendations were discussed with the patient at the time of the exam. Approximately 10% of breast cancers are not detected with mammography. A negative mammographic report should not delay biopsy if a clinically suggestive mass is present. Sharri Hernandez M.D. ay/:06/21/2017 11:52:54 Fabrication Manager: Minerva ÁLVAREZ(R)(M), [facility] letter sent: Follow Up Recommended 3 BI-RADS Code: ACR-BI-RADS Category 3: Probably Benign
== END | disposition home or self-care (01) ==
LOC: C.MAMM 11:18
PROVIDERS: ATTEND Physician Assistant Medical
DX: Z85.3 Personal history of malignant neoplasm of breast (principal); Z08 Encounter for follow-up examination after completed treatment for malignant neoplasm

== ENCOUNTER → 2017-07-21 | Outpatient (CLI) | payer OTHER ==
[2017-07-21 09:30] LABS: BASO % 0.9 %; BASO ABS # 0.04 K/uL (0-0.2); EOS % 4.4 %; HEMATOCRIT 40.9 % (37-47); HEMOGLOBIN 13.8 g/dL (12.0-16.0); LYMPH % 41.6 %; LYMPH ABS # 1.91 K/uL (1.2-3.4); MEAN CELL VOLUME 91.9 fL (80-100); MEAN CORPUSCULAR HGB CONC 33.7 g/dl (32-36); MEAN PLATELET VOLUME 10.6 fL (7.4-10.4); MONO % 10.5 %; MONO ABS # 0.48 K/uL (0.11-0.59); NEUT % 42.6 %; NEUT ABS # 1.96 K/uL (1.4-6.5); PLATELET COUNT 316 K/uL (130-400); RED CELL DISTRIBUTION WIDTH CV 13.2 % (11.5-14.5); RED CELL DISTRIBUTION WIDTH SD 44.3 fL (36.4-46.3); WHITE BLOOD COUNT 4.59 K/uL (4.8-10.8)
[2017-07-21 09:49] LABS: ALBUMIN 3.7 gm/dl (3.4-5.0); ALT/SGPT 23 U/L (12-78); AST/SGOT 21 U/L (15-37); BLOOD UREA NITROGEN 11 mg/dl (7-18); CARBON DIOXIDE 23 mmol/L (21-32); CREATININE 0.84 mg/dl (0.60-1.20); GLUCOSE 87 mg/dl (70-99); POTASSIUM 3.4 mmol/L (3.5-5.1); SODIUM 137 mmol/L (136-145)
[2017-07-21 09:51] LABS: ALKALINE PHOSPHATASE 67 U/L (45-117); TOTAL PROTEIN 7.1 gm/dl (6.4-8.2)
== END | disposition home or self-care (01) ==
LOC: C.LAB1850 08:19
PROVIDERS: ATTEND Internal Medicine Hematology & Oncology
DX: D05.11 Intraductal carcinoma in situ of right breast (principal)

== ENCOUNTER → 2017-08-11 | Outpatient (CLI) | payer OTHER | END | disposition home or self-care (01) | LOC: C.PAPS 11:59 | PROVIDERS: ATTEND Obstetrics & Gynecology | DX: Z01.411 Encounter for gynecological examination (general) (routine) with abnormal findings (principal) ==

== ENCOUNTER → 2017-10-18 | Outpatient (CLI) | payer OTHER ==
[~2017-10-18] MED LIST changes: +iron
[2017-10-18 14:03] VITALS: BP 145/87; PULSE 58; TEMP 36.5; O2SAT 100
--- NOTE | 2017-10-18 15:44 | Radiation Oncology Follow-Up ---
Radiation Oncology Follow-Up Date of Visit Oct 18, 2017. Reason For Visit Six-month follow-up Radiation Completion Date 03/17/17 Diagnosis (1) Ductal carcinoma in situ (DCIS) of breast Status: Resolved Onset Date: 12/21/2016 Stage: 0 Permanent Comment: Abnormal right breast mammogram Status post ultrasound-guided core needle biopsy 12/21/2016 Ductal carcinoma in situ Estrogen receptor positive and progesterone receptor negative Status post needle localization lumpectomy and sentinel lymph node biopsy 2016 Stage pTis [id number] Status post completion of radiation therapy 03/17/2017. She received 5130 cGy utilizing hypo-fractionation. Last Edited By: Mikala Brooks on Mar 25, 2017 11:06 History of Present Illness Ms. Morris presented with an abnormal mammogram on 12/03/2016 which revealed a small cluster of calcifications in the right upper outer quadrant of the breast. She was brought back on 12/15/2016 for a unilateral right diagnostic mammogram which confirmed a small cluster of calcifications in the right breast in the upper outer quadrant. She then underwent a stereotactic core biopsy of 2 regions (one with calcifications and one without calcifications) of the right breast lesion on 12/21/2016 which confirmed ductal carcinoma in situ with comedonecrosis that his nuclear grade 2/3 and measured up to 0.3 cm in greatest dimension; the biopsy sample without calcifications also confirmed ductal carcinoma in situ that was nuclear grade 2/3 that measured up to 4 mm in the greatest dimension and was estrogen receptor positive and progesterone receptor negative. The patient saw Dr. Ashok Andrade in consultation in discuss treatment options including mastectomy and breast conserving surgery. The patient elected for a right breast lumpectomy and sentinel lymph node biopsy on 01/12/2017 underneath the supervision of Dr. Ashok Andrade. Pathology revealed ductal carcinoma in situ that was grade 3 with no evidence of necrosis and measures 0.4 cm in the greatest dimension. The margins were negative and the closest margin was 1 mm. The sentinel lymph node revealed no evidence of metastatic carcinoma. The patient was seen by Michele Rios from medical oncology who recommended anti- hormonal therapy utilizing tamoxifen. We are now seeing the patient in consultation discuss the role of adjuvant radiation therapy. She underwent a CT simulation and was found to be a candidate for hypo- fractionation. Her treatment was completed on 03/17/2017. She received 5130 cGy. Interim History She has continued to have mild discomfort in her breast. The pain occasionally is sharp. It feels as it is deep within the breast. At times there is aching discomfort. This will then resolve then recur. Exercise can exacerbate the discomfort. She noticed this this if she rolls on her side. This is mainly along the outside of the breast. There can be discomfort in the area where she had her lymph nodes biopsied. She had significant discomfort during the mammogram. She rates the level of pain at 3 when it is the most uncomfortable. Occasionally she will take ibuprofen. She is followed with medical oncology and was on tamoxifen. Unfortunately she developed hives and exacerbation of her dermatographia. The medication had to be stopped. She is up-to-date on mammography. Allergies Coded Allergies: Shellfish (Verified Allergy, Severe, swelling and hives, 01/12/17) BEE STING (Unverified Allergy, Intermediate, ANAPHYLAXIS, 01/12/17) Hydromorphone (Verified Allergy, Intermediate, ITCHING, "GROGGINESS", 01/12) Tamoxifen (Verified Allergy, Unknown, hives, 10/18/17) Tetracycline (Verified Adverse Reaction, Intermediate, N/V, 01/12/17) Home Medications Scheduled Cetirizine (Zyrtec), 10 MG PO DAILY Ramipril (Altace), 5 MG PO QAM [iron], DAILY Scheduled PRN Erythromycin (Acne Aid) (Erythromycin), 1 APPLN TOP PRN PRN for ACNE Review of Systems Gastrointestinal: Symptoms: Indigestion GI Comments: Indigestion quite a bit, more SOB during and after exercise, wheezing durin Oral: Symptoms: No Problems Respiratory: Symptoms: WNL Respiratory Comments: SOB during and after exercise Urinary: Symptoms: WNL Skin: Symptoms: No Problems Breast: Right Upper Arm Measurement: 28.5 Right Mid Arm Measurement: 25.5 Right Wrist Measurement: 16.5 Left Upper Arm Measurement: 28.5 Left Mid Arm Measurement: 25.0 Left Wrist Measurement: 16.5 Arm Dominence: Left Physical Exam Vital Signs Date Time Temp Pulse Resp B/P (MAP) Pulse Ox O2 Delivery O2 Flow Rate FiO2 10/18/17 14:03 36.5 58 16 145/87 100 Fatigue: None General Appearance: no apparent distress Eyes: normal inspection, EOMI ENT: normal ENT inspection, hearing grossly normal Neck: no adenopathy, thyroid normal Respiratory/Chest: lungs clear, no respiratory distress, no accessory muscle use Breast: Breast examination reveals well-healed incisions of the right breast. There are no masses or no axillary adenopathy. There is very slight tenderness to palpation of the lateral aspect of the breast. There is no edema. She has no skin retractions or nipple changes using the [place] score cosmesis she has an excellent outcome. The left breast showed no masses or tenderness and no axillary adenopathy. Cardiovascular: regular rate, rhythm, no gallop, no murmur Extremities: no pedal edema Neurologic/Psychiatric: no motor/sensory deficits, alert, normal mood/affect Skin: warm/dry Pain Management Patient Reports Pain: Yes (sometimes) Side: Right Pain Location: Breast Patient Preferred Pain Scale: 0 - 10 Initial Pain Intensity: 3.0 Pain Management Plan She will take [id number] ibuprofen intermittently for discomfort of the breast. Laboratory Laboratory Results: not applicable Pathology Pathology Results: were reviewed, and pertinent findings noted in HPI Imaging Imaging Studies: were reviewed, and pertinent findings noted below Imaging Comments UNILATERAL RIGHT DIGITAL DIAGNOSTIC MAMMOGRAM TOMOSYNTHESIS WITH CAD: 06/21/2017 CLINICAL HISTORY: 47-year-old woman with a personal history of right breast DCIS status post lumpectomy performed in December 2016, and radiation therapy. She presents for first follow-up in the right breast after treatment. TECHNIQUE: Right breast tomosynthesis in addition to standard 2D mammography was performed. Spot magnification right CC and ML views were also obtained. Current study was also evaluated with a Computer Aided Detection (CAD) system. COMPARISON: Comparison is made to exams dated: 01/12/2017 localization, 2016 specimen, 12/21/2016 mammogram, 12/21/2016 stereotactic biopsy, 12/15/2016 mammogram, and 12/03/2016 mammogram - [facility]. BREAST COMPOSITION: The tissue of the right breast is heterogeneously dense, which may obscure small masses. FINDINGS: There is mild diffuse skin thickening and trabecular edema of the right breast. Expected architectural distortion and 2 surgical clips in the upper outer middle one third of the breast, at the site of prior lumpectomy. There are numerous round lucent areas at the surgical site, most compatible with fat necrosis. There are punctate and amorphous microcalcifications in the upper outer middle and anterior one third of the right breast, anterior to the surgical site, which have been stable on prior mammograms dating back to at least 2008 and most likely represent benign calcifications from fibrocystic change. No suspicious mass, architectural distortion or cluster of microcalcifications is seen. IMPRESSION: ACR-BI-RADS CATEGORY 3: PROBABLY BENIGN Expected post treatment changes in the right breast, without definite mammographic evidence of malignancy. A six-month close follow-up right diagnostic tomosynthesis mammogram including spot magnification views is recommended to ensure longer stability after treatment. Annual left mammography will also be due at that time. These results and recommendations were discussed with the patient at the time of the exam. Approximately 10% of breast cancers are not detected with mammography. A negative mammographic report should not delay biopsy if a clinically suggestive mass is present. Sharri Hernandez M.D. ay/:06/21/2017 11:52:54 Quotation Clerk: Minerva ÁLVAREZ(Darren)(Jeffry), [facility] letter sent: Follow Up Recommended 3 BI-RADS Code: ACR-BI-RADS Category 3: Probably Benign Dictated by: Sharri Hernandez MD Signed by: Sharri Hernandez MD Assessment & Plan Plan: Continue with scheduled mammography. Continue regular follow-up with medical oncology and her primary care physician. We discussed the discomfort of the breast. This is steadily improving. I recommended that she periodically take ibuprofen if there is persistent pain. I also recommended that she take pain medication prior to mammography. She was seen and examined by Dr. Ortiz. We asked her to return to our office in 1 year. She may call if she has any questions or concerns in the interim. Assessment & Plan (Attending) I agree with note created by Mikala Brooks PA-C. I reviewed the patient's chart and information with her. I have examined and evaluated the patient. I reviewed relevant clinical information and answered the patient's and/or family' s questions. QC SCIENTIST Total Time In Follow-Up I spent 20 minutes speaking to the patient in performing examination. I spent 15 minutes reviewing information and completing this note. AK Total Time (Attending) In Follow-Up I spent 15 minutes examining and counseling the patient. QC SCIENTIST Copy To Isrrael Sanders M.D.; Ashok Andrade M.D.; Michele Rios D.O. Problem Qualifiers (1) Ductal carcinoma in situ (DCIS) of breast: Laterality: right Qualified Codes: D05.11 - Intraductal carcinoma in situ of right breast
== END | disposition home or self-care (01) ==
LOC: C.ONC 13:48
PROVIDERS: ATTEND Physician Assistant Medical
DX: Z08 Encounter for follow-up examination after completed treatment for malignant neoplasm (principal); Z92.3 Personal history of irradiation; Z85.3 Personal history of malignant neoplasm of breast